=== PATIENT | female | born 1950 | race Caucasian/White ===

== ENCOUNTER 2019-04-12 07:40 | Emergency (ER) | payer MEDICARE ==
[2019-04-12 07:57] VITALS: BP 156/75
--- NOTE | 2019-04-12 08:08 | UC ---
Eye Complaint HPI - HPI Summary HPI Summary: Patient is 68 year old female, who present today to the urgent care with left upper eyelid swelling that she noticed today morning while putting up her makeup. She denies any drainage or discharge or any visual problems. No fevers She denies any other symptoms - History of Current Complaint Chief Complaint: UCEye Stated Complaint: LT EYE COMPLAINT Time Seen by Provider: 04/12/19 07:49 Hx Obtained From: Patient Pain Intensity: 0 - Allergies/Home Medications Allergies/Adverse Reactions: Allergies Allergy/AdvReac Type Severity Reaction Status Date / Time erythromycin base Allergy GI Upset Verified 04/12/19 07:53 Home Medications: Home Medications Cbd Oil 1 drop SL DAILY 04/12/19 [History] PMH/Surg Hx/FS Hx/Imm Hx - Additional Past Medical History Additional PMH: Past Medical History : None Past Surgical History: Tonsillectomy, cataract, endometriosis Family History : Noncontributory Social History : alcohol use, non smoker, no drug use. . Previously Healthy: Yes - Surgical History Surgical History: Yes Surgery Procedure, Year, and Place: endometriosis. cataract. tonsilectomy. thumb - Social History Alcohol Use: Daily Alcohol Amount: 3-4 glasses of gin Substance Use Type: None Smoking Status (MU): Never Smoked Tobacco Review of Systems All Other Systems Reviewed And Are Negative: Yes Constitutional: Positive: Negative Skin: Positive: Negative Eyes: Positive: Other - Left upper eyelid swelling ENT: Positive: Negative Respiratory: Positive: Negative Cardiovascular: Positive: Negative Gastrointestinal: Positive: Negative Genitourinary: Positive: Negative Motor: Positive: Negative Neurovascular: Positive: Negative Musculoskeletal: Positive: Negative Neurological: Positive: Negative Psychological: Positive: Negative Is Patient Immunocompromised?: No Physical Exam - Summary Physical Exam Summary: Physical Exam: Const: Appears well. No signs of apparent distress present. Alert and oriented x 3. Musculo: Walks with a normal gait. Head/Face: Atraumatic, normocephalic on inspection. Eyes: EOMI and PERRLA in both eyes. Conjunctivae clear. No discharge noted . left upper eyelid with some swelling and mild erythema laterally involving the eyelids. Able to move eyelids without any pain. ENT: Hearing normal, TM normal appearing bilaterally, non bulging , non erythematous . No tenderness on palpation / manipulation of Tragus. No mastoid tenderness. No tenderness to palpation on maxillary and frontal sinus. No pharyngeal erythema or exudates . Uvula is midline. No cervical or submandibular lymphadenopathy noted. Respiratory: Respirations are unlabored. Lungs clear to auscultation bilaterally, no wheezing , rhonchi or rales noted . CVS: Regular rate and Rhythm, S1S2 normal , no murmurs identified. Extremities: Peripheral circulation is grossly normal. Pulses 2+ Abdomen : Soft non tender , nondistended , Bowel sounds present . No guarding , rebound tenderness or rigidity noted. Skin: No lesions or rash located on the upper extremities or on the lower extremities. Neuro: Cranial nerves II to XII intact, motor and sensory intact. DTR Intact bilaterally. Mood is normal. Affect is normal. Triage Information Reviewed: Yes Vital Signs: Initial Vital Signs Temp 98.6 F 04/12/19 07:54 Pulse 90 04/12/19 07:54 Resp 16 04/12/19 07:54 BP 156/75 04/12/19 07:54 Pulse Ox 96 04/12/19 07:54 Vital Signs Reviewed: Yes Eye Complaint Course/Dx - Course Course Of Treatment: During the visit today, we discussed the findings and further plan to treat it with topical antibiotics and warm compresses. I will also prescribe oral antibiotics prevent preseptal cellulitis. We discussed that she should do good handwashing every time she touches her eye. She will follow-up with her primary care doctor in 1 week. Patient expressed understanding . - Differential Dx/Diagnosis Provider Diagnosis: Blepharitis Discharge - Sign-Out/Discharge Documenting (check all that apply): Patient Departure All imaging exams completed and their final reports reviewed: No Studies - Discharge Plan Condition: Stable Disposition: HOME Prescriptions: Cephalexin CAP* [Keflex CAP*] 500 mg PO TID 7 Days #21 cap Ciprofloxacin 0.3% OPTH.LESIA* [Cipro 0.3% Opth*] 1 drop LEFT EYE Q6H 7 Days #1 btl Patient Education Materials: Blepharitis (ED) Referrals: Samir GUTHRIE,Ian Barreto [Primary Care Provider] - 1 Week Additional Instructions: Please start taking the medication and eyedrops as prescribed to the pharmacy . Follow up with your primary care doctor in 1 week. Patients blood pressure slightly high in Urgent care today , plan follow up with PCP for better control within 1 month. Return to Urgent care / ER if symptoms get worse. - Billing Disposition and Condition Condition: STABLE Disposition: Home
== END 2019-04-12 08:20 | disposition home or self-care (01) ==
LOC: UCCORT 07:40
DX: H01.004 Unspecified blepharitis left upper eyelid (principal)
CPT/HCPCS: 99212; G0463